=== PATIENT | male | born 1935 | race Caucasian/White ===

== ENCOUNTER 2019-12-11 17:14 | Observation (INO) ==
[2019-12-11] MEDS ORDERED: *HR* OxyCODONE/APAP 5/325 TABLET PO ONE (17:59)
[2019-12-11] MEDS ORDERED: Tdap (Boostrix) Vaccine 0.5 ML SYRINGE IM ONE (17:59)
[2019-12-11 18:37] LABS: Basophils % 0.1 %; Eosinophils # 0.1 K/mcL (0.0-0.6); Eosinophils % 0.8 %; Hematocrit 42.4 % (37.5-50.1); Hemoglobin 14.1 g/dL (12.9-16.9); Immature Granulocytes % 0.4 % (0-4); Lymphocytes # 0.9 K/mcL (0.6-4.6); Lymphocytes % 11.7 %; Mean Corpuscular HGB Conc 33.3 g/dL (31.6-35.5); Mean Corpuscular Hemoglobin 31.5 pg (28.0-33.3); Mean Corpuscular Volume 94.6 fL (83.0-100.0); Mean Platelet Volume 11.5 fL (9.4-12.4); Monocytes # 0.5 K/mcL (0.0-1.3); Monocytes % 7.1 %; Platelet Count 243 K/mcL (140-400); Red Blood Count 4.48 M/mcL (4.19-5.50); Red Cell Distribution Width 13.3 % (11.5-14.5); Segmented Neutrophils % 79.9 %; White Blood Count 7.5 K/mcL (4.3-11.1)
[2019-12-11 18:54] LABS: Albumin 4.1 g/dL (3.5-5.7); Albumin/Globulin Ratio 1.1 (1.1-2.2); Bilirubin,Total 0.9 mg/dL (0.3-1.0); Calcium 9.7 mg/dL (8.6-10.3); Globulin 3.8 g/dL (2.4-3.5); Potassium 2.9 mEq/L (3.5-5.1); Total Protein 7.9 g/dL (6.4-8.9)
[2019-12-11 19:02] LABS: Troponin I 0.07 ng/mL (< 0.04)
[2019-12-11] MEDS ORDERED: Potassium Chloride Elixir 20 MEQ/15 ML UDC PO ONE (19:43)
[2019-12-11] MEDS ORDERED: Naloxone 0.4 MG/ML INJ IVP PRN (21:31)
[2019-12-11] MEDS ORDERED: Nitroglycerin 0.4 MG TAB.SUBL SL PRN (21:54)
[2019-12-11] MEDS ORDERED: Morphine Sulfate 2 MG/ML SYRINGE IVP PRN (21:55)
[2019-12-11] MEDS ORDERED: Morphine Sulfate 2 MG/ML SYRINGE IVP ONE (22:52)
[2019-12-11] MEDS ORDERED: Furosemide 40 MG/4 ML VIAL IVP ONE (23:30)
[2019-12-12 01:22] LABS: Basophils % 0.2 %; Eosinophils % 0.2 %; Hematocrit 39.9 % (37.5-50.1); Immature Granulocytes % 0.4 % (0-4); Lymphocytes # 0.8 K/mcL (0.6-4.6); Mean Corpuscular HGB Conc 32.6 g/dL (31.6-35.5); Mean Corpuscular Hemoglobin 30.8 pg (28.0-33.3); Mean Corpuscular Volume 94.5 fL (83.0-100.0); Mean Platelet Volume 11.9 fL (9.4-12.4); Monocytes # 0.7 K/mcL (0.0-1.3); Monocytes % 6.4 %; Platelet Count 218 K/mcL (140-400); Prothrombin Time 11.3 Seconds (9.4-12.1); Red Blood Count 4.22 M/mcL (4.19-5.50); Red Cell Distribution Width 13.3 % (11.5-14.5); Segmented Neutrophils % 85.8 %
[2019-12-12 01:23] LABS: Neutrophils # 9.6 K/mcL (1.6-8.9); White Blood Count 11.2 K/mcL (4.3-11.1)
[2019-12-12 01:25] LABS: Activated Partial Thrombo Time 30.5 Seconds (26.0-36.0)
[2019-12-12 01:37] LABS: Albumin 3.6 g/dL (3.5-5.7); Albumin/Globulin Ratio 1.1 (1.1-2.2); Calcium 9.3 mg/dL (8.6-10.3); Globulin 3.4 g/dL (2.4-3.5); Potassium 3.4 mEq/L (3.5-5.1)
[2019-12-12] MEDS ORDERED: cilostazoL 100 MG TABLET PO SCH (07:30)
[2019-12-12] MEDS ORDERED: Potassium Chloride Elixir 20 MEQ/15 ML UDC PO ONE (08:01)
[2019-12-12] MEDS ORDERED: Furosemide 40 MG TABLET PO SCH (09:00)
[2019-12-12] MEDS ORDERED: Folic Acid 1 MG TABLET PO SCH (09:00)
[2019-12-12] MEDS ORDERED: Metoprolol XL (24 HR) Succ 25 MG TAB.ER.24H PO SCH (09:00)
[2019-12-12] MEDS ORDERED: Aspirin Enteric Coated 81 MG Tablet PO SCH (09:00)
[2019-12-12] MEDS ORDERED: *HR* Heparin 5,000 UNIT/ML VIAL IVP ONE (10:07)
[2019-12-12] MEDS ORDERED: *HR* Heparin 5,000 UNIT/ML VIAL IVP PRN ×2 (10:07)
[2019-12-12] MEDS ORDERED: Heparin 25,000UNIT/250ML 1/2NS 25,000 UNIT/250 ML IV.SOLN IVC SCH (10:15)
[2019-12-12 11:21] LABS: Hemoglobin 13.1 g/dL (12.9-16.9); Mean Corpuscular HGB Conc 32.8 g/dL (31.6-35.5); Mean Corpuscular Hemoglobin 30.8 pg (28.0-33.3); Mean Corpuscular Volume 93.9 fL (83.0-100.0); Mean Platelet Volume 11.4 fL (9.4-12.4); Platelet Count 220 K/mcL (140-400); Red Blood Count 4.26 M/mcL (4.19-5.50); Red Cell Distribution Width 13.6 % (11.5-14.5); White Blood Count 11.7 K/mcL (4.3-11.1)
[2019-12-12 11:26] LABS: Heparin anti-factor XA UFH < 0.04 IU/mL (0.30-0.70)
[2019-12-12 11:27] LABS: Prothrombin Time 11.3 Seconds (9.4-12.1)
[2019-12-12 12:00] VITALS: BP 90/67
== END 2019-12-12 15:31 | disposition short-term general hospital (02) ==
LOC: EMEROOARM 17:14 → 3BNU 17:14 → 2NNU 12-12 08:50
PROVIDERS: ADMIT Internal Medicine; ATTEND Internal Medicine